=== PATIENT | male | born 1970 | race Hispanic/Latino ===

== ENCOUNTER 2024-06-21 13:45 | Observation (INO) | payer BC, OTHER ==
[~2024-06-21] VITALS: Ht 170.2 cm; Wt 83.9 kg
[~2024-06-21 13:45] MED LIST: FENOGLIDE40 MG PO; LEVEMIR 3M100 UNITS/ SQ; LEVIMIR SQ; LISINOPRIL10 MG PO; LISINOPRIL5 MG PO; METFORMIN HCL1000 MG; METFORMIN HCL500 MG PO; SOTALOL80 MG PO; XARELTO20 MG PO; Z.0.AMARYL4 MG PO
[2024-06-21] MEDS ORDERED: SODIUM CHLORIDE FLUSH 10 ML SYR IV PRN (14:00)
[2024-06-21 14:43] LABS: BASOPHILS # (AUTO) 0.1 (0.0-0.1); BASOPHILS % 1.1 % (0.0-1.0); EOSINOPHILS # (AUTO) 0.1 (0.0-0.4); EOSINOPHILS % 2.2 % (0.0-6.0); HEMATOCRIT 42.6 % (38.2-49.6); HEMOGLOBIN 13.9 g/dL (14.0-18.0); LYMPHOCYTES # (AUTO) 1.4 (1.0-3.2); LYMPHOCYTES % 25.9 % (18.0-39.1); MEAN CORPUSCULAR HEMOGLOBIN 25.1 pg (28-32); MEAN CORPUSCULAR HGB CONC 32.6 g/dL (31-35); MONOCYTES # (AUTO) 0.4 (0.2-0.8); NEUTROPHILS # (AUTO) 3.4 (2.1-6.9); NEUTROPHILS % 62.4 % (38.7-80.0); PLATELET COUNT 130 x10e3/uL (140-360); RED BLOOD COUNT 5.53 x10e6/uL (4.3-5.7); RED CELL DISTRIBUTION WIDTH 16.2 % (11.7-14.4); WHITE BLOOD COUNT 5.37 x10e3/uL (4.8-10.8)
[2024-06-21 15:00] LABS: ALBUMIN 3.7 g/dL (3.5-5.0); ALBUMIN/GLOBULIN RATIO 1.1 (0.8-2.0); ANION GAP 16.3 mmol/L (8-16); BILIRUBIN,TOTAL 0.6 mg/dL (0.2-1.2); CALCIUM 9.2 mg/dL (8.4-10.2); CREATININE, SERUM 1.39 mg/dL (0.72-1.25); POTASSIUM 4.3 mmol/L (3.5-5.1); TOTAL PROTEIN 7.2 g/dL (6.5-8.1)
[2024-06-21 15:06] LABS: TROPONIN I 0.013 ng/mL (0-0.300)
[2024-06-21] MEDS ORDERED: ONDANSETRON HCL INJ 2MG/ML 2ML 2 MG/ML VIAL IV PRN (15:45)
[2024-06-21] MEDS ORDERED: SODIUM CHLORIDE FLUSH 10 ML SYR INJ PRN (15:45)
[2024-06-21 15:54] VITALS: PULSE 86; RESP 18; TEMP 98.4
[2024-06-21] MEDS ORDERED: SODIUM CHLORIDE 0.9% 1000ML 1,000 ML ONE (16:05)
[2024-06-21] MEDS: SODIUM CHLORIDE 0.9% 1000ML 1,000 ML IV ONE (16:15)
[2024-06-21 16:44] VITALS: BP 142/86; PULSE 68; RESP 17; TEMP 97.9; O2SAT 100
[2024-06-21 17:43] VITALS: BP 142/86; PULSE 68; RESP 17; TEMP 97.9; O2SAT 100
[2024-06-21] MEDS ORDERED: ROSUVASTATIN CA20 MG PO (18:06)
[2024-06-21] MEDS ORDERED: DEXTROSE 50% SYRINGE 50 ML IV PRN (18:45)
[2024-06-21 20:00] VITALS: BP 141/90; PULSE 72; RESP 16; TEMP 98.8; O2SAT 100
[2024-06-21] MEDS ORDERED: ATORVASTATIN 40 MG TAB PO SCH (21:00)
[2024-06-21] MEDS ORDERED: INSULIN LISPRO 100 UNIT/1 ML 3ML VIAL SQ SCH (21:00)
[2024-06-22] MEDS ORDERED: ASPIRIN 81 MG ENTERIC COATED PO SCH (09:00)
[2024-06-22] MEDS ORDERED: SOTALOL HCL 80 MG TAB PO SCH (09:00)
== END 2024-06-21 22:25 | disposition left against medical advice (07) ==
LOC: ER 13:48 → ERHOLD 15:43 → MED/SURG3 16:35
PROVIDERS: ADMIT Internal Medicine; ATTEND Internal Medicine
DX: R07.89 Other chest pain (principal); I10 Essential (primary) hypertension; Z53.29 Procedure and treatment not carried out because of patient's decision for other reasons; I48.0 Paroxysmal atrial fibrillation; Z79.01 Long term (current) use of anticoagulants; E11.42 Type 2 diabetes mellitus with diabetic polyneuropathy; E11.51 Type 2 diabetes mellitus with diabetic peripheral angiopathy without gangrene; E78.5 Hyperlipidemia, unspecified; K21.9 Gastro-esophageal reflux disease without esophagitis; K86.3 Pseudocyst of pancreas; C60.9 Malignant neoplasm of penis, unspecified; H54.61 Unqualified visual loss, right eye, normal vision left eye; H40.9 Unspecified glaucoma; Z79.899 Other long term (current) drug therapy
CPT/HCPCS: 36415; 71045; 80053; 82948; 83880; 84484; 85025; 93005; 94760; 99283; G0378; J7030